=== PATIENT | female | born 1965 | race Caucasian/White ===

== ENCOUNTER 2017-08-11 06:17 | Day surgery (SDC) | payer BC, OTHER ==
[~2017-08-11 06:17] MED LIST: BUPIVACAINE HCL/PF 0.5% (5MG/ML) 10 ML VIAL IJ ONE
[2017-08-11] MEDS ORDERED: ePHEDrine SULFATE 50 MG/1 ML AMPULE ONE (07:28)
[2017-08-11] MEDS ORDERED: PROPOFOL 20 ML ONE ×5 (07:29)
[2017-08-11] MEDS ORDERED: SUCCINYLCHOLINE CHLORIDE 200 MG/10 ML VIAL ONE (07:29)
[2017-08-11] MEDS ORDERED: MIDAZOLAM HCL 2 MG/2 ML SINGLE DOSE VIAL ONE (07:45)
[2017-08-11] MEDS ORDERED: ceFAZolin SODIUM 1 GM VIAL ONE (07:46)
[2017-08-11] MEDS ORDERED: KETOROLAC TROMETHAMINE 30 MG/1 ML VIAL ONE (07:46)
[2017-08-11] MEDS ORDERED: DEXAMETHASONE SOD PHOSPHATE 4 MG/1 ML VIAL ONE (07:46)
[2017-08-11] MEDS ORDERED: BUPIVACAINE HCL/PF 0.5% (5MG/ML) 10 ML VIAL ONE (07:50)
[2017-08-11] MEDS ORDERED: ceFAZolin SODIUM 1 GM VIAL IVPB ONE (08:30)
[2017-08-11] MEDS ORDERED: BUPIVACAINE HCL/PF 0.5% (5MG/ML) 10 ML VIAL IJ ONE ×2 (08:46→08:53)
--- NOTE | 2017-08-11 09:06 | HP ---
Satellite H - Chief Complaint Chief Complaint: left knee pain - Past Medical History Allergies/Adverse Reactions: Allergies Allergy/AdvReac Type Severity Reaction Status Date / Time glucosamine Allergy Intermediate Rash Verified 08/11/17 07:04 Sulfa (Sulfonamide Allergy Intermediate Rash Verified 08/11/17 07:04 Antibiotics) ...LMP Comment: MENOPAUSE - Current Medications Current Medications: Home Medications Medication Instructions Recorded Adalimumab [Humira] 40 mg SQ ASDIR 05/28/15 Methotrexate [Mexate -] 15 mg PO Q7D 05/28/15 Atorvastatin Ca [Lipitor] 10 mg PO DAILY 08/10/17 Levothyroxine [Synthroid -] 75 mcg PO DAILY 08/10/17 Naproxen [Naprosyn -] 500 mg PO ASDIR PRN 08/10/17 Hydrocodone/Acetaminophen [[place] 1 each PO Q6H PRN #30 tablet MDD 4 08/11/17 5-325 Tablet] Satellite Physical Exam - Physical Examination Vital Signs: Vital Signs Period Temp Pulse Resp BP Sys/Valdivia Pulse Ox Last 24 Hr 97.8 F-97.8 F 87-87 20-20 109-109/79-79 99 General Appearance: Well Nourished, Well Developed, Alert & Oriented x3 ENT: Clear Lung: Normal air movement Heart: Regular rate & rhythm Extremities: Other (left knee- + swelling, + ttp, decr rom, + mcmurrays, Apleys , nvi MRI + lmt, djd) Neurological: Intact, Alert, Oriented Satellite Impression/Plan - Impression/Plan Impression: left knee lmt, djd Operative Procedure: left knee arthroscopy Date to be Performed: 08/11/17
--- NOTE | 2017-08-11 09:16 | OP ---
Operative Note - Note: Operative Date: 08/11/17 ([facility]) Pre-Operative Diagnosis: left knee internal derangement Operation: left knee arthroscopy with PMM, PLM, synovectomy, debridement chondroplasty Post-Operative Diagnosis: Same as Pre-op Surgeon: Jayson Sky Stabilizer Operator: Asad Morales Anesthesiologist/ANALYSIS LEAD: Romel Sotelo Anesthesia: General, Local Specimens Removed: shavings Estimated Blood Loss (mls): 5 Operative Report Dictated: Yes
[2017-08-11] MEDS ORDERED: ONDANSETRON 4 MG/2 ML VIAL IVPUSH PRN (09:17)
[2017-08-11] MEDS ORDERED: oxyCODONE HCL 5 MG TABLET PO PRN (09:17)
[2017-08-11] MEDS ORDERED: MEPERIDINE HCL CARPU-JECT 25 MG/1 ML DISP.SYRIN ONE (09:28)
[2017-08-11] MEDS ORDERED: LACTATED RINGERS SOLUTION 1,000 ML IV SCH (09:30)
--- NOTE | 2017-08-11 10:16 | OP ---
DATE OF OPERATION: 08/11/2017 PREOPERATIVE DIAGNOSIS: Left knee medial and lateral meniscus tear, rheumatoid arthritis, and osteoarthritis. POSTOPERATIVE DIAGNOSIS: Left knee medial and lateral meniscus tear, rheumatoid arthritis, and osteoarthritis. PROCEDURE: Left knee arthroscopy, partial medial and lateral meniscectomy, arthroscopic synovectomy and debridement of chondroplasty. SURGEON: Jayson Sky MD RETAIL MANAGEMENT KEYHOLDER: Jey Larose MD DOLPHIN RESEARCHER: Romel Sotelo CRNA INTRAARTICULAR INJECTION: Marcaine 0.5%, 20 mL. ANESTHESIA: LMA anesthesia. DRAINS: None. COMPLICATIONS: None. BLOOD LOSS: Minimal. BLOOD GIVEN: None. FLUID REPLACEMENT: 500 mL. INDICATIONS: This patient is a 52-year-old female with a preoperative diagnosis of left knee pain, medial and lateral meniscus tear, osteoarthritis, and rheumatoid arthritis. After understanding the potential risks, complications, alternatives, and benefits of surgery versus nonsurgical treatment, the patient elected to undergo this procedure. DESCRIPTION OF PROCEDURE: The patient was brought to the operating room, peripheral IV placed, and IV sedation was given. One gram of IV Ancef was given. LMA anesthesia was induced. Ample Webril was placed on the left upper thigh. The Styrofoam ring was applied. The left lower extremity was prepped and draped in sterile fashion, elevated, exsanguinated with an Esmarch bandage, and tourniquet was inflated to 275 mmHg. The leg was in a C-clamp leg-pro. A superomedial outflow portal was established, a lateral portal was established. An arthroscope was introduced into the joint using the spinal needle. Under direct visualization, a medial portal was established. Immediately it was apparent that the patients left knee was full of inflamed synovium because of the rheumatoid arthritis. An extensive arthroscopic synovectomy was performed in all 3 compartments as well as the notch. Patient had significant osteoarthritis, areas of grade 4, underneath the patella and the femoral trochlea. These were debrided. Patient had a shredded tear of both the medial and lateral meniscus. These were debrided with the curved shaver. This also revealed osteoarthritis of the medial and lateral tibial plateau as well as the medial and lateral femoral condyles. The anterior compartments were packed with inflammatory synovium. These were debrided, as well. In the end, I did a partial medial and lateral meniscectomy, extensive arthroscopic synovectomy and debridement of chondroplasty. The knee did look much better after the surgery. However, she has extensive osteoarthritis, and the rheumatoid arthritis destruction will continue. Therefore, it is very likely she will need a total knee replacement at some point in the future. The area was copiously irrigated and washed out. All instrumentation removed. Excess saline was removed. The arthroscopy portals were closed with 3-0 nylon sutures. Then, 20 mL of 0.5% Marcaine was introduced into the joint. The area was then washed and dried and covered with Xeroform, 4x4 gauze, Webril, and an Óscar bandage. Tourniquet was taken down after total tourniquet time of 25 minutes. There were no complications during the case. The patient tolerated the procedure well, was brought to the ambulatory recovery room in stable condition. JEY LAROSE M.D. [id number]
[2017-08-11 11:47] VITALS: TEMP 97.8
[2017-08-11 14:43] VITALS: BP 130/77; PULSE 70
--- NOTE | 2017-08-12 12:39 | PATH ---
Surgical Pathology Report Patient Name: ANURAG MARTINEZ [facility]. Rec. #: [id number] /Age/Gender: 1965 (Age: 52) / F Account: [id number] Location: [facility] SURGICAL Taken: 08/11/2017 Received: 08/11/2017 Reported: 08/12/2017 Physicians: Asad Morales M.D. Specimen(s) Received LEFT KNEE SHAVINGS Clinical History Rheumatoid arthritis Final Diagnosis LEFT KNEE, ARTHROSCOPIC SHAVINGS: HYPERPLASTIC SYNOVIUM WITH MARKED CHRONIC INFLAMMATION AND LYMPHOPLASMACYTIC INFILTRATE CONSISTENT WITH RHEUMATOID ARTHRITIS. ADDITIONAL AREAS OF SYNOVIUM WITH ACUTE INFLAMMATION PRESENT. FIBROCARTILAGE WITH MYXOID DEGENERATIVE CHANGES, AND FIBRINOID MATERIAL PRESENT. SMALL FRAGMENTS OF HYALINE CARTILAGE PRESENT. Electronically Signed Sandro Sen M.D. Gross Description Received in formalin, labeled "left knee shavings," is a 4.3 x 3.6 x 0.3 cm. aggregate of blackman-yellow soft tissue fragments. A promotions representative portion is submitted in one cassette. 08/11/201708/11/2017
== END 2017-08-11 13:30 | disposition home or self-care (01) ==
LOC: JASU-SURG 06:17
PROVIDERS: ATTEND Orthopaedic Surgery
PROC: 0SBD4ZZ Excision of Left Knee Joint, Percutaneous Endoscopic Approach (ICD-10-PCS; 2017-08-11)
PROC: 0SBD4ZZ Excision of Left Knee Joint, Percutaneous Endoscopic Approach (ICD-10-PCS; 2017-08-11)
PROC: 0SBD4ZZ Excision of Left Knee Joint, Percutaneous Endoscopic Approach (ICD-10-PCS; principal; 2017-08-11 08:00)
PROC: 0SBD4ZZ Excision of Left Knee Joint, Percutaneous Endoscopic Approach (ICD-10-PCS; 2017-08-11 08:00)
DX: S83.282A Other tear of lateral meniscus, current injury, left knee, initial encounter (principal); S83.242A Other tear of medial meniscus, current injury, left knee, initial encounter; X58.XXXA Exposure to other specified factors, initial encounter; Y93.9 Activity, unspecified; Y92.9 Unspecified place or not applicable; Y99.9 Unspecified external cause status; M17.12 Unilateral primary osteoarthritis, left knee; M06.9 Rheumatoid arthritis, unspecified
CPT/HCPCS: 88304-TC; 97116-GP

== ENCOUNTER 2018-03-09 06:09 | Day surgery (SDC) | payer BC, OTHER ==
[2018-03-08 08:19] VITALS: BMI 31.4
[2018-03-09] MEDS ORDERED: MIDAZOLAM HCL 2 MG/2 ML SINGLE DOSE VIAL ONE (07:12)
[2018-03-09] MEDS ORDERED: SUCCINYLCHOLINE CHLORIDE 200 MG/10 ML VIAL ONE (07:12)
[2018-03-09] MEDS ORDERED: PROPOFOL 20 ML ONE (07:12)
[2018-03-09] MEDS ORDERED: DEXAMETHASONE SOD PHOSPHATE 4 MG/1 ML VIAL ONE (07:16)
[2018-03-09] MEDS ORDERED: LIDOCAINE HCL/PF 2% SDV 5ML VIAL ONE (07:16)
[2018-03-09] MEDS ORDERED: ceFAZolin SODIUM 1 GM VIAL ONE (07:16)
[2018-03-09] MEDS ORDERED: BUPIVACAINE HCL/PF 0.5% (5MG/ML) 10 ML VIAL ONE (07:43)
--- NOTE | 2018-03-09 07:43 | HP ---
Satellite [facility] - Chief Complaint Chief Complaint: right knee pain History of Present Illness: right knee pain, RA, meniscus tear - Past Medical History Allergies/Adverse Reactions: Allergies Allergy/AdvReac Type Severity Reaction Status Date / Time glucosamine Allergy Intermediate Rash Verified 03/09/18 06:39 Sulfa (Sulfonamide Allergy Intermediate Rash Verified 03/09/18 06:39 Antibiotics) ...LMP Comment: 8years - Current Medications Current Medications: Home Medications Medication Instructions Recorded Adalimumab [Humira] 40 mg SQ ASDIR 05/28/15 Methotrexate [Mexate -] 15 mg PO Q7D 05/28/15 Atorvastatin Ca [Lipitor] 10 mg PO DAILY 08/10/17 Levothyroxine [Synthroid -] 75 mcg PO DAILY 08/10/17 Naproxen [Naprosyn -] 500 mg PO ASDIR PRN 08/10/17 Satellite Physical Exam - Physical Examination Vital Signs: Vital Signs Period Temp Pulse Resp BP Sys/Valdivia Pulse Ox Last 24 Hr 98.3 F-98.3 F 83-83 20-20 130-130/78-78 100 General Appearance: Well Nourished ENT: Clear Lung: Clear to auscultation Heart: Regular rate & rhythm Breasts: Soft Abdomen: Soft Extremities: No edema Satellite Impression/Plan - Impression/Plan Impression: right knee pain, RA, medial meniscus tear Operative Procedure: right knee arthroscopy Date to be Performed: 03/09/18
[2018-03-09] MEDS ORDERED: ceFAZolin SODIUM 1 GM VIAL IVPB ONE (08:00)
[2018-03-09] MEDS ORDERED: BUPIVACAINE HCL/PF (5 MG/ML) 30 ML VIAL IJ ONE (08:35)
[2018-03-09] MEDS ORDERED: KETOROLAC TROMETHAMINE 30 MG/1 ML VIAL ONE (08:37)
--- NOTE | 2018-03-09 08:49 | OP ---
Operative Note - Note: Operative Date: 03/09/18 Pre-Operative Diagnosis: right knee RA synovitis, medial meniscus tear, OA Operation: right knee arthroscopy, partial medial and lateral meniscectomy, synovectomy, debridement chondroplasty Post-Operative Diagnosis: Same as Pre-op Surgeon: Jayson Sky Tawer: Asad Morales Anesthesiologist/COMMERCIAL CREDIT REVIEWER: Deanne Peterson Anesthesia: Local, MAC Specimens Removed: shavings, synovium Estimated Blood Loss (mls): 0 Drains, Volume Out (mls): 0 Blood Volume Replaced (mls): 0 Fluid Volume Replaced (mls): 700 Operative Report Dictated: Yes
--- NOTE | 2018-03-09 09:45 | OP ---
DATE OF OPERATION: 03/09/2018 PREOPERATIVE DIAGNOSES: Right knee pain, synovitis, meniscus tear, osteoarthritis. POSTOPERATIVE DIAGNOSES: Right knee pain, synovitis, meniscus tear, osteoarthritis. PROCEDURE: Right knee arthroscopy, partial medial and lateral meniscectomy, debridement chondroplasty and partial arthroscopic synovectomy. SURGEON: Jayson Sky MD HEALTH EDUCATION ASSISTANT: Jey Larose MD ANESTHESIA: deep MAC anesthesia with local injection of 20 mL of 0.5% Marcaine. DRAINS: None. COMPLICATIONS: None. SPECIMEN: Arthroscopic shavings. BLOOD LOSS: None. BLOOD GIVEN: None. FLUID REPLACEMENT: Plasma-Lyte, 700 mL. This patient is a 52-year-old female with a preoperative diagnosis of right knee pain, osteoarthritis, rheumatoid arthritis, rheumatoid foreign bodies and a recurrent meniscus tear. After understanding the potential risks, complications, alternatives and benefits of surgical versus nonsurgical treatment the patient elected to undergo this procedure. Patient brought to the operating room. Peripheral IV placed. IV sedation given. Deep MAC anesthesia was induced. The patient was placed into the C-clamp leg pro with ample padding throughout. The right lower extremity was prepped and draped in a sterile fashion. The leg was exsanguinated with an Esmarch bandage with the tourniquet inflated to 275 mmHg. Superomedial outflow portal was established with a No. 15 scalpel blade. Lateral portal was established. Arthroscope was introduced into the joint under direct visualization using a spinal needle . A medial portal was established and diagnostic arthroscopy was performed. In the medial compartment the patient was seen to have a small radial tear in the posterior aspect of the medial meniscus. This was debrided with a curved shaver. Patient had areas of grade 2 chondromalacia of the medial tibial plateau and medial femoral condyle. These were gently debrided as well. There was some medial compartment synovitis which was debrided. The patient had a lot of synovitis in the intercondylar notch. This was debrided as well. Patient's ACL was not of great quality but was left alone. In the lateral compartment it was certainly much worse. The patient had a significant tear of the lateral meniscus body and posterior horn. This was debrided with a curved shaver. Patient had a lot more synovitis. This was debrided with a shaver and after the partial synovectomy this revealed grade 3, small areas of grade 4 osteoarthritis of the lateral femoral condyle and lateral tibial plateau. These were gently debrided as well. Lastly our attention turned to the patellofemoral joint. There was some synovitis in the suprapatellar pouch. A partial synovectomy was performed which did reveal small punctate areas of grade 4 chondromalacia on the femoral trochlea and widespread grade 2 changes on the undersurface of the patella. These areas were gently debrided as well. The knee was copiously irrigated and washed out. All instrumentation removed. All excess saline removed. The arthroscopy portals closed with 3-0 nylon sutures. Marcaine 0.5%, 20 mL, was introduced into the joint. The area was then washed and dried, covered with Xeroform gauze, 4 x 4 gauze, Webril and a 6-inch Óscar bandage. The tourniquet was taken down after a total tourniquet time of 18 minutes. There were no complications during the case. The patient tolerated the procedure quite well and was brought to the ambulatory recovery room in stable condition. JEY LAROSE M.D. [id number]
[2018-03-09 12:44] VITALS: BP 121/79; PULSE 77; TEMP 98.2
[2018-03-09] MEDS ORDERED: oxyCODONE HCL 5 MG TABLET PO PRN ×2 (15:44)
[2018-03-09] MEDS ORDERED: ONDANSETRON 4 MG/2 ML VIAL IVPUSH PRN (15:44)
[2018-03-09] MEDS ORDERED: LACTATED RINGERS SOLUTION 1,000 ML IV SCH (15:45)
--- NOTE | 2018-03-10 17:46 | PATH ---
Surgical Pathology Report Patient Name: ANURAG MARTINEZ [facility]. Rec. #: [id number] /Age/Gender: 1965 (Age: 52) / F Account: [id number] Location: [facility] SURGICAL Taken: 03/09/2018 Received: 03/09/2018 Reported: 03/10/2018 Physicians: Amanda Carroll M.D. Specimen(s) Received RIGHT KNEE SHAVINGS Clinical History Internal derangement, arthritis Final Diagnosis KNEE SHAVINGS, RIGHT, ARTHROSCOPY, PARTIAL LATERAL AND MEDIAL MENISCECTOMY, DEBRIDEMENT ARTHROPLASTY: FRAGMENTS OF DENSE FIBROCONNECTIVE TISSUE, ADIPOSE TISSUE, AND SYNOVIUM WITH ACUTE AND CHRONIC SYNOVITIS. Electronically Signed Vandana Sepulveda M.D. Gross Description Received in formalin, labeled "right knee shavings," is a 4.8 x 3.5 x 0.5 cm. aggregate of blackman-yellow soft tissue fragments. A tour sales representative portion is submitted in one cassette. /03/09/2018 [facility]03/09/2018
== END 2018-03-09 12:49 | disposition home or self-care (01) ==
LOC: JASU-SURG 06:09
PROVIDERS: ATTEND Orthopaedic Surgery
PROC: 0SBC4ZZ Excision of Right Knee Joint, Percutaneous Endoscopic Approach (ICD-10-PCS; principal; 2018-03-09 08:00)
DX: S83.241A Other tear of medial meniscus, current injury, right knee, initial encounter (principal); S83.281A Other tear of lateral meniscus, current injury, right knee, initial encounter; X58.XXXA Exposure to other specified factors, initial encounter; Y93.89 Activity, other specified; Y92.9 Unspecified place or not applicable; Y99.9 Unspecified external cause status; M65.9 Synovitis and tenosynovitis, unspecified; M17.11 Unilateral primary osteoarthritis, right knee
CPT/HCPCS: 88304-TC; 94760